=== PATIENT | male | born 1950 | race Caucasian/White ===

== ENCOUNTER 2023-03-26 21:56 | Inpatient (IN) | payer MEDICARE, BC ==
[~2023-03-26] VITALS: Ht 185.4 cm; Wt 74.4 kg
[2023-03-26] MEDS ORDERED: ONDANSETRON 4 MG/2 ML VIAL IV ONE (22:00)
[2023-03-26] MEDS ORDERED: MORPHINE SULFATE 4 MG/1 ML DISP.SYRIN IV ONE (22:00)
[2023-03-26] MEDS ORDERED: IV NORMAL SALINE 1000 ML BAG IV ONE (22:00)
[2023-03-26] MEDS ORDERED: LOSA50TA39 PO (22:05)
[2023-03-26] MEDS ORDERED: AMLO10TA59 PO (22:05)
[2023-03-26] MEDS ORDERED: PRED20TA PO (22:05)
[2023-03-26 22:14] LABS: BASOPHILS # (AUTO) 0.1 K/UL (0.0-0.2); BASOPHILS % (AUTO) 0.8 % (0.0-2.0); EOSINOPHILS # (AUTO) 0.1 K/uL (0.0-0.7); EOSINOPHILS % (AUTO) 1.4 % (0.0-7.0); HEMATOCRIT 41.2 % (36.7-47.1); HEMOGLOBIN 14.4 g/dL (12.5-16.3); LYMPHOCYTES # (AUTO) 2.8 K/uL (0.8-4.8); LYMPHOCYTES % (AUTO) 28.2 % (20.5-51.5); MEAN CORPUSCULAR HEMOGLOBIN 29.8 uug (23.8-33.4); MEAN CORPUSCULAR HGB CONC 35 g/dL (32.5-36.3); MEAN CORPUSCULAR VOLUME 85.1 fL (73.0-96.2); MONOCYTES % (AUTO) 10.3 % (0.0-11.0); NEUTROPHILS # (AUTO) 5.9 K/uL (1.8-8.9); NEUTROPHILS % (AUTO) 59.3 % (38.5-71.5); PLATELET COUNT (AUTO) 246 K/uL (152-348); RED BLOOD CELL COUNT(AUTO) 4.84 MIL/uL (4.06-5.63); WHITE BLOOD COUNT (AUTO) 9.9 K/uL (3.6-10.2)
[2023-03-26] MEDS ORDERED: MORPHINE SULFATE 4 MG/1 ML DISP.SYRIN ONE (22:17)
[2023-03-26] MEDS ORDERED: ONDANSETRON 4 MG/2 ML VIAL ONE (22:17)
[2023-03-26 22:20] LABS: DIFFERENTIAL COMMENT 1
[2023-03-26 22:23] LABS: CALCIUM 9.3 mg/dL (8.5-10.1); CARBON DIOXIDE 26 mmol/L (21-32); CHLORIDE 97 mmol/L (98-107); CREATININE 1.1 mg/dL (0.6-1.3); GLUCOSE 131 mg/dL (74-106); POTASSIUM 3.7 mmol/L (3.5-5.1); SODIUM SERUM 133 mmol/L (136-145); UREA NITROGEN, BLOOD 21 mg/dL (7-18)
[2023-03-26 22:31] LABS: ALANINE AMINOTRANSFERASE 44 U/L (16-63); ALBUMIN 3.6 g/dL (3.4-5.0); ALKALINE PHOSPHATASE 69 U/L (50-136); ASPARTATE AMINOTRANSFERASE 20 U/L (15-37); BILIRUBIN,DIRECT 0.3 mg/dL (0.0-0.2); BILIRUBIN,TOTAL 0.9 mg/dL (0.2-1.0); CREATINE KINASE, TOTAL 77 U/L (39-308); TOTAL PROTEIN, SERUM 6.7 g/dL (6.4-8.2)
[2023-03-26] MEDS ORDERED: SWABABLE VALVE TRANSFER SET EA MC ONE (22:37)
[2023-03-26] MEDS ORDERED: IOHEXOL 300MG/ML 100 ML INFUS..BTL ONE (22:37)
[2023-03-26] MEDS ORDERED: IV NORMAL SALINE 250 ML IV ONE (22:37)
[2023-03-26] MEDS ORDERED: HYDROMORPHONE 1 MG/1 ML DISP.SYRIN ONE (22:40)
[2023-03-26] MEDS ORDERED: HYDROMORPHONE 1 MG/1 ML DISP.SYRIN IV ONE (22:45)
[2023-03-26] MEDS ORDERED: KETAMINE HCL 200 MG/20 ML VIAL ONE (23:45)
[2023-03-26] MEDS ORDERED: KETAMINE HCL 500 MG/10 ML INJ IV ONE (23:45)
[2023-03-27] MEDS ORDERED: ONDANSETRON 4 MG/2 ML VIAL IV ONE (00:15)
[2023-03-27] MEDS ORDERED: ONDANSETRON 4 MG/2 ML VIAL ONE (00:17)
[2023-03-27] MEDS ORDERED: METOCLOPRAMIDE HCL 10 MG/2 ML VIAL ONE (00:26)
[2023-03-27] MEDS ORDERED: diphenhydrAMINE 50 MG/1 ML VIAL ONE (00:27)
[2023-03-27] MEDS ORDERED: METOCLOPRAMIDE HCL 10 MG/2 ML VIAL IV ONE (00:30)
[2023-03-27] MEDS ORDERED: diphenhydrAMINE 50 MG/1 ML VIAL IV ONE (00:30)
[2023-03-27] MEDS ORDERED: LORAZEPAM 2 MG/1 ML VIAL IV ONE (00:30)
[2023-03-27] MEDS ORDERED: LORAZEPAM 2 MG/1 ML VIAL ONE (00:32)
[2023-03-27] MEDS ORDERED: ALBUTEROL SULFATE 8 GM HFA.AER.AD IH PRN (01:45)
[2023-03-27] MEDS ORDERED: ONDANSETRON 4 MG/2 ML VIAL IV PRN (01:45)
[2023-03-27] MEDS ORDERED: hydrALAZINE HCL 20 MG/1 ML VIAL IV PRN (01:45)
[2023-03-27] MEDS ORDERED: ALBUTEROL SULFATE 2.5 MG/3 ML NEBU NEB PRN ×2 (03:30)
[2023-03-27] MEDS ORDERED: MORPHINE SULFATE 2 MG/1 ML DISP.SYRIN ONE ×2 (03:52→08:31)
[2023-03-27] MEDS: MORPHINE SULFATE 2 MG/1 ML DISP.SYRIN IVP PRN ×2 (03:59→08:33)
[2023-03-27] MEDS ORDERED: predniSONE 20 MG TABLET PO SCH ×2 (09:00)
[2023-03-27] MEDS: AMLODIPINE 10 MG TABLET PO SCH (09:00)
[2023-03-27] MEDS: HEPARIN SODIUM,PORCINE 5,000 UNITS/ML VIAL SQ SCH ×2 (09:00→21:00)
[2023-03-27] MEDS: LOSARTAN POTASSIUM 50 MG TABLET PO SCH (09:00)
[2023-03-27 09:53] VITALS: BP 121/75; TEMP 97.7; O2SAT 92
[2023-03-27] MEDS ORDERED: PRED10TA23 PO (11:04)
[2023-03-27] MEDS ORDERED: RIFA150T2 PO (11:06)
[2023-03-27] MEDS ORDERED: ISON300T19 PO (11:07)
[2023-03-27] MEDS: predniSONE 10 MG TABLET PO SCH ×2 (13:14→17:00)
[2023-03-27] MEDS: LORAZEPAM 1 MG TABLET PO PRN ×2 (13:15→20:13)
[2023-03-27] MEDS: HYDROMORPHONE 1 MG/1 ML DISP.SYRIN IM PRN ×3 (13:18→21:34)
[2023-03-27] MEDS: METOCLOPRAMIDE HCL 10 MG/2 ML VIAL IV PRN ×2 (13:20→17:53)
[2023-03-27 15:19] LABS: BASOPHILS % (AUTO) 0.4 % (0.0-2.0); EOSINOPHILS % (AUTO) 0.4 % (0.0-7.0); HEMATOCRIT 37.3 % (36.7-47.1); HEMOGLOBIN 12.5 g/dL (12.5-16.3); LYMPHOCYTES # (AUTO) 0.4 K/uL (0.8-4.8); LYMPHOCYTES % (AUTO) 5.4 % (20.5-51.5); MEAN CORPUSCULAR HEMOGLOBIN 29.1 uug (23.8-33.4); MEAN CORPUSCULAR HGB CONC 34 g/dL (32.5-36.3); MEAN CORPUSCULAR VOLUME 86.8 fL (73.0-96.2); MONOCYTES # (AUTO) 0.2 K/uL (0.1-1.30); MONOCYTES % (AUTO) 2.4 % (0.0-11.0); NEUTROPHILS # (AUTO) 6.7 K/uL (1.8-8.9); NEUTROPHILS % (AUTO) 91.4 % (38.5-71.5); PLATELET COUNT (AUTO) 196 K/uL (152-348); RED CELL DISTRIBUTION WIDTH 15.1 % (12.1-16.2); WHITE BLOOD COUNT (AUTO) 7.4 K/uL (3.6-10.2)
[2023-03-27 15:21] LABS: DIFFERENTIAL COMMENT 1
[2023-03-27 15:27] LABS: CREATININE 1.1 mg/dL (0.6-1.3); POTASSIUM 4.6 mmol/L (3.5-5.1)
[2023-03-27 15:39] LABS: ALBUMIN 3.1 g/dL (3.4-5.0); BILIRUBIN,TOTAL 1.2 mg/dL (0.2-1.0); TOTAL PROTEIN, SERUM 5.8 g/dL (6.4-8.2)
[2023-03-27 16:47] VITALS: BP 134/77; TEMP 97.7; O2SAT 92
[2023-03-27] MEDS ORDERED: IV NS 1000 ML 1,000 ML IV PRN (23:00)
[2023-03-27 23:17] VITALS: BP 147/94; TEMP 98; O2SAT 94
[2023-03-28 01:40] VITALS: BP 148/95; TEMP 98.2; O2SAT 99
[2023-03-28] MEDS: HYDROMORPHONE 1 MG/1 ML DISP.SYRIN IM PRN ×4 (02:27→18:50)
[2023-03-28 07:32] LABS: BASOPHILS % (AUTO) 0.3 % (0.0-2.0); EOSINOPHILS # (AUTO) 0.1 K/uL (0.0-0.7); EOSINOPHILS % (AUTO) 1.1 % (0.0-7.0); HEMATOCRIT 33.1 % (36.7-47.1); HEMOGLOBIN 11.8 g/dL (12.5-16.3); LYMPHOCYTES # (AUTO) 0.8 K/uL (0.8-4.8); LYMPHOCYTES % (AUTO) 9.9 % (20.5-51.5); MEAN CORPUSCULAR HEMOGLOBIN 30.3 uug (23.8-33.4); MEAN CORPUSCULAR HGB CONC 36 g/dL (32.5-36.3); MEAN CORPUSCULAR VOLUME 84.6 fL (73.0-96.2); MONOCYTES # (AUTO) 0.7 K/uL (0.1-1.30); MONOCYTES % (AUTO) 7.8 % (0.0-11.0); NEUTROPHILS # (AUTO) 6.9 K/uL (1.8-8.9); NEUTROPHILS % (AUTO) 80.9 % (38.5-71.5); PLATELET COUNT (AUTO) 192 K/uL (152-348); WHITE BLOOD COUNT (AUTO) 8.5 K/uL (3.6-10.2)
[2023-03-28 07:40] LABS: DIFFERENTIAL COMMENT 1
[2023-03-28 07:45] LABS: ALANINE AMINOTRANSFERASE 33 U/L (16-63); ALBUMIN 2.9 g/dL (3.4-5.0); ALKALINE PHOSPHATASE 48 U/L (50-136); ASPARTATE AMINOTRANSFERASE 28 U/L (15-37); BILIRUBIN,TOTAL 1.4 mg/dL (0.2-1.0); CALCIUM 8.4 mg/dL (8.5-10.1); CARBON DIOXIDE 26 mmol/L (21-32); CHLORIDE 96 mmol/L (98-107); GLUCOSE 96 mg/dL (74-106); MAGNESIUM 1.9 mg/dL (1.8-2.4); PHOSPHOROUS 2.8 mg/dL (2.5-4.9); POTASSIUM 4.3 mmol/L (3.5-5.1); SODIUM SERUM 128 mmol/L (136-145); TOTAL PROTEIN, SERUM 5.4 g/dL (6.4-8.2); UREA NITROGEN, BLOOD 17 mg/dL (7-18)
[2023-03-28 07:55] LABS: ABG BASE EXCESS 1.4 mmol/L; ABG HCO3 25.4 mmol/L; ABG PCO2 37.9 mmHg (35.0-45.0); ABG PH 7.444 (7.350-7.450); ABG PO2 45.9 mmHg (75.0-100.0); ABG SITE LEFT RADIAL; ABG TOTAL HEMOGLOBIN 12.9 G/dL (13.5-18.0); COHb 0.6 % (0.5-1.5); MetHb 0.3 % (0.0-1.5); O2Hb 84.7 % (94.0-97.0); VENT MODE RA
[2023-03-28 08:00] VITALS: BP 129/92; O2SAT 97
[2023-03-28] MEDS: HEPARIN SODIUM,PORCINE 5,000 UNITS/ML VIAL SQ SCH ×2 (09:00→21:00)
[2023-03-28] MEDS: METOCLOPRAMIDE HCL 10 MG/2 ML VIAL IV PRN ×2 (10:10→18:50)
[2023-03-28] MEDS ORDERED: CLONIDINE HCL 0.1 MG TABLET PO PRN (10:45)
[2023-03-28] MEDS ORDERED: MAGNESIUM HYDROXIDE 30 ML LIQUID UDC PO PRN (10:45)
[2023-03-28] MEDS ORDERED: ISONIAZID 300 MG TABLET PO SCH (10:45)
[2023-03-28] MEDS: DOCUSATE SODIUM 250 MG CAPSULE PO SCH (10:57)
[2023-03-28] MEDS: AMLODIPINE 10 MG TABLET PO SCH (11:22)
[2023-03-28] MEDS: predniSONE 10 MG TABLET PO SCH ×3 (11:23→17:02)
[2023-03-28] MEDS: LOSARTAN POTASSIUM 50 MG TABLET PO SCH (11:23)
[2023-03-28 11:55] VITALS: BP 138/86; TEMP 98.2; O2SAT 96
[2023-03-28 15:42] VITALS: BP 141/88; TEMP 98.5; O2SAT 97
[2023-03-28] MEDS: SODIUM CHLORIDE 1,000 MG TABLET PO SCH (17:02)
[2023-03-28] MEDS: LORAZEPAM 1 MG TABLET PO PRN (18:50)
[2023-03-28 20:00] VITALS: BP 124/77; TEMP 97.8; O2SAT 94
[2023-03-28] MEDS: ACETAMINOPHEN 325 MG TABLET PO PRN (22:02)
[2023-03-29] VITALS: BP 143/98; TEMP 98; O2SAT 95
[2023-03-29] MEDS: HYDROMORPHONE 1 MG/1 ML DISP.SYRIN IM PRN (01:21)
[2023-03-29 04:00] VITALS: BP 146/87; TEMP 98; O2SAT 92
[2023-03-29 06:45] LABS: BASOPHILS % (AUTO) 0.4 % (0.0-2.0); EOSINOPHILS # (AUTO) 0.1 K/uL (0.0-0.7); EOSINOPHILS % (AUTO) 1.3 % (0.0-7.0); HEMATOCRIT 34.6 % (36.7-47.1); HEMOGLOBIN 12.3 g/dL (12.5-16.3); LYMPHOCYTES # (AUTO) 1.1 K/uL (0.8-4.8); LYMPHOCYTES % (AUTO) 13.8 % (20.5-51.5); MEAN CORPUSCULAR HEMOGLOBIN 29.8 uug (23.8-33.4); MEAN CORPUSCULAR HGB CONC 36 g/dL (32.5-36.3); MEAN CORPUSCULAR VOLUME 83.8 fL (73.0-96.2); MONOCYTES # (AUTO) 0.6 K/uL (0.1-1.30); MONOCYTES % (AUTO) 8.1 % (0.0-11.0); NEUTROPHILS # (AUTO) 5.8 K/uL (1.8-8.9); NEUTROPHILS % (AUTO) 76.4 % (38.5-71.5); PLATELET COUNT (AUTO) 203 K/uL (152-348); RED BLOOD CELL COUNT(AUTO) 4.13 MIL/uL (4.06-5.63); RED CELL DISTRIBUTION WIDTH 14.8 % (12.1-16.2); WHITE BLOOD COUNT (AUTO) 7.6 K/uL (3.6-10.2)
[2023-03-29 06:53] LABS: DIFFERENTIAL COMMENT 1
[2023-03-29 06:57] LABS: CALCIUM 8.5 mg/dL (8.5-10.1); CARBON DIOXIDE 26 mmol/L (21-32); CHLORIDE 93 mmol/L (98-107); GLUCOSE 94 mg/dL (74-106); MAGNESIUM 2.3 mg/dL (1.8-2.4); PHOSPHOROUS 2.5 mg/dL (2.5-4.9); POTASSIUM 4.2 mmol/L (3.5-5.1); SODIUM SERUM 127 mmol/L (136-145); UREA NITROGEN, BLOOD 15 mg/dL (7-18); URIC ACID 3.2 mg/dL (3.5-7.2)
[2023-03-29 07:11] LABS: THYROID STIMULATING HORMONE 3.519 mIU/mL (0.358-3.740)
[2023-03-29] MEDS: ACETAMINOPHEN 325 MG TABLET PO PRN (09:00)
[2023-03-29] MEDS: predniSONE 10 MG TABLET PO SCH ×2 (09:00→13:19)
[2023-03-29] MEDS: HEPARIN SODIUM,PORCINE 5,000 UNITS/ML VIAL SQ SCH (09:00)
[2023-03-29] MEDS: AMLODIPINE 10 MG TABLET PO SCH (09:01)
[2023-03-29] MEDS: DOCUSATE SODIUM 250 MG CAPSULE PO SCH (09:01)
[2023-03-29] MEDS: SODIUM CHLORIDE 1,000 MG TABLET PO SCH (09:01)
[2023-03-29] MEDS: LOSARTAN POTASSIUM 50 MG TABLET PO SCH (09:01)
[2023-03-29] MEDS ORDERED: HYDR-3980 PO (09:15)
[2023-03-29] MEDS ORDERED: DOCU250C14 PO (09:15)
[2023-03-29] MEDS ORDERED: HYDROCODONE/APAP 5-325MG TABLET PO PRN (11:45)
[2023-03-29 11:51] VITALS: BP 165/97; TEMP 97.8; O2SAT 90
[2023-03-29 11:53] VITALS: BP 165/97
[2023-03-29 12:42] LABS: *BILIRUBIN,URIN NEGATIVE (NEGATIVE); *BLOOD, URINE NEGATIVE (NEGATIVE); *CLARITY,URINE CLEAR (CLEAR); *COLOR,URINE YELLOW (YELLOW); *KETONES,URINE NEGATIVE (NEGATIVE); *PROTEIN,URINE NEGATIVE (NEGATIVE); *UROBILINOGEN,URINE 0.2 E.U./dl (NORMAL); LEUKOCYTE ESTERASE ,URINE NEGATIVE (NEGATIVE); NITRITE, URINE NEGATIVE (NEGATIVE); PH,URINE 7.5 (5.0-8.0); UGLUCOSE NEGATIVE (NEGATIVE)
[2023-03-29] MEDS ORDERED: ENSURE ENLIVE (VAN) 240 ML LIQUID PO SCH (13:00)
[2023-03-29 13:47] LABS: *SODIUM RNDM,URINE 66 mmol/L (40-220)
[2023-04-02] MEDS ORDERED: ISONIAZID 300 MG TABLET PO SCH (09:00)
[2023-04-02] MEDS ORDERED: RIFAPENTINE 150 MG PO SCH (10:47)
== END 2023-03-29 14:50 | disposition home or self-care (01) | DRG 564 ==
LOC: ER 21:57 → TRANSITION 03-27 01:34 → TELE3 03-27 09:01
PROVIDERS: ADMIT Internal Medicine; ATTEND Internal Medicine
DX: S22.22XA Fracture of body of sternum, initial encounter for closed fracture (principal); J96.00 Acute respiratory failure, unspecified whether with hypoxia or hypercapnia; E87.1 Hypo-osmolality and hyponatremia; J98.11 Atelectasis; S27.892A Contusion of other specified intrathoracic organs, initial encounter; H53.122 Transient visual loss, left eye; V43.52XA Car driver injured in collision with other type car in traffic accident, initial encounter; Y92.410 Unspecified street and highway as the place of occurrence of the external cause; M31.6 Other giant cell arteritis; Z85.01 Personal history of malignant neoplasm of esophagus; R76.11 Nonspecific reaction to tuberculin skin test without active tuberculosis; Z79.52 Long term (current) use of systemic steroids; Z80.9 Family history of malignant neoplasm, unspecified; Z82.3 Family history of stroke; K80.20 Calculus of gallbladder without cholecystitis without obstruction; K42.9 Umbilical hernia without obstruction or gangrene; N40.0 Benign prostatic hyperplasia without lower urinary tract symptoms; I10 Essential (primary) hypertension; D64.9 Anemia, unspecified; Z87.09 Personal history of other diseases of the respiratory system; K44.9 Diaphragmatic hernia without obstruction or gangrene; M43.13 Spondylolisthesis, cervicothoracic region; R09.02 Hypoxemia; G31.9 Degenerative disease of nervous system, unspecified
CPT/HCPCS: 36415; 36600; 70450; 71045; 71260; 72125; 82533; 83735; 84100; 84300; 84443; 84484; 84550; 85025; 85730; 86850; 86900; 86901; 93005; 93307; G0378; J0360; J1170; J1200; J1644; J2060; J2270; J2405; J2765; J7040; J7512; Q9967